=== PATIENT | female | born 1995 | race Caucasian/White ===

== ENCOUNTER 2016-08-11 15:49 | Emergency (ER) | payer OTHER ==
[~2016-08-11] VITALS: Ht 170.2 cm; Wt 56.7 kg
--- NOTE | 2016-08-11 18:57 | ED GENERAL ADULT ---
History of Present Illness General Chief Complaint: General Adult Stated Complaint: COUGH, NIGHT SWEATS,MALLORY Source: patient Exam Limitations: no limitations Vital Signs & Intake/Output Vital Signs & Intake/Output Vital Signs Date Time Temp Pulse Resp B/P B/P Pulse O2 O2 Flow FiO2 Mean Ox Delivery Rate 08/11 2040 96.8 86 18 119/76 98 Room Air 08/11 1556 97.7 100 16 126/82 99 ED Intake and Output 08/12 0000 08/11 1200 Intake Total Output Total Balance Patient 125 lb Weight Weight Reported by Patient Measurement Method Allergies Coded Allergies: No Known Allergies (08/11/16) Triage Note: PT STATES SHE HAS HAD A COUGH SINCE THE END OF MAY. PT STATES SHE WAS TAKING DAYQUIL AND THAT IS THE ONLY THING THAT HELPED. PT NOW STATES SHE COUGHED SO MUCH THAT HER THROAT HURTS. PT STATES UNSURE IF SHE IS HAVING FEVERS. Triage Nurses Notes Reviewed? yes Onset: 6-8 weeks ago Duration: week(s):, constant : No Patient currently breastfeeds: No HPI: 20 y/o otherwise healthy female presenting with non-productive cough, subjective night time fevers (no night sweats), nasal congestion x6-8 weeks. Reports development of sore throat over the past 2-3 weeks after prolonger coughing. Also had one episode of trace blood streaks with cough earlier today. Has tried Dayquil without relief. No gross hemoptysis. Currently on OCP's and reports possible family h/o DVT in her grandmother. Denies leg swelling, recent travel/ surgeries, or personal h/o blood clots. Denies CP or SOB. (JULISSA NOVA,KIRAN) Reconcile Medications Albuterol Sulfate (Proventil Hfa) 90 MCG HFA.AER.AD 2 PUF INH Q4 bronchitis Azithromycin 250 MG TABLET 1 DP PO AD bronchitis 2 the first day followed by 1 for days 2-5 Norethindrone-E.estradiol-Iron (Junel Fe 1 MG-20 Mcg Tablet) 1 MG-20 MCG (21)/75 MG (7) TABLET 1 TAB PO DAILY CONTROL (Reported) Prednisone 10 MG TABLET 6 TAB PO DAILY bronchitis (JUANJOSE BRONSON,SANTINO Rouse) Past History Travel History Traveled to [place] past 21 day No Medical History Any Pertinent Medical History? see below for history Surgical History Surgical History: non-contributory Psychosocial History What is your primary language Macedonian Tobacco Use: Never used ETOH Use: occasional use Illicit Drug Use: denies illicit drug use Family History Hx Contributory? Yes (JULISSA NOVA,KIRAN) Review of Systems Review of Systems Constitutional: Reports: chills, fever. EENTM: Reports: nasal congestion, throat pain. Denies: ear pain. Respiratory: Reports: cough. Denies: hemoptysis, sputum production, wheezing. Cardiovascular: Denies: chest pain, syncope. GI: Denies: abdominal pain, diarrhea, nausea, vomiting. Musculoskeletal: Denies: joint pain, muscle pain. Skin: Denies: rash. Neurological/Psychological: Denies: headache, numbness, tingling, tremors, weakness. (JULISSA NOVA,KIRAN) Physical Exam Physical Exam General Appearance: well developed/nourished, no apparent distress Head: atraumatic Ears, Nose, Throat: pharyngeal erythema, ENT exam unremarkable except for mild OP erythema Respiratory: normal breath sounds, lungs clear Cardiovascular: regular rate/rhythm (to 100), tachycardia Gastrointestinal: normal bowel sounds, soft, non-tender Extremities: no edema, calf tenderness Core Measures ACS in differential dx? No CVA/TIA Diagnosis: No Severe Sepsis Present: No Septic Shock Present: No (JULISSA NOVA,KIRAN) Progress Differential Diagnoses I considered the following diagnoses in my evaluation of the patient: [Viral URI vs bronchitis vs PNA vs TB vs PE vs malignancy. ] Plan of Care: Orders Procedure Date/time Status D-DIMER 08/12 1923 Complete BASIC METABOLIC PANEL 08/12 1923 Complete THROAT CULTURE W/QUICK STREP 08/11 1600 Active Laboratory Tests 08/11/161944: Anion Gap 9, Estimated GFR > 60, BUN/Creatinine Ratio 10.0, Glucose 87, Calcium 9.1, D-Dimer < 200, CBC w Diff Cancelled, WBC Cancelled, RBC Cancelled, Hgb Cancelled, Hct Cancelled, MCV Cancelled, MCH Cancelled, RDW Cancelled, Plt Count Cancelled, MPV Cancelled, PUBS MCHC Cancelled Given prolonged cough with tachycardia, OCP use, and family f/o blood clots obtained d-dimer, which was not elevated above NL. CXR consistent with airway inflammation and bronchitis. Given legnth of duration of symptoms will cover with abx, prednisone and albuterol inhaler. (KIRAN COSTA PA-C) Initial ED EKG: none (JULISSA NOVA,KIRAN) Departure Departure Disposition: HOME OR SELF CARE Condition: Stable Clinical Impression Primary Impression: Bronchitis Referrals: KJ ROBERSON MD (PCP/Family) Departure Forms: Customer Survey General Discharge Information (KIRAN COSTA PA-C) Departure Prescriptions: Current Visit Scripts Prednisone 6 TAB PO DAILY 4 Days Albuterol Sulfate (Proventil Hfa) 2 PUF INH Q4 #1 INHAL Azithromycin 1 DP PO AD #6 TAB 2 the first day followed by 1 for days 2-5 PA/PLYCOR OPERATOR Co-Sign Statement Statement: ED Attending supervision documentation- [] I saw and evaluated the patient. I have also reviewed all the pertinent lab results and diagnostic results. I agree with the findings and the plan of care as documented in the PA's/PLYCOR OPERATOR's documentation. [x] I have reviewed the ED Record and agree with the PA's/PLYCOR OPERATOR's documentation. [] Additions or exceptions (if any) to the PAs/PLYCOR OPERATOR's note and plan are summarized below: [] (JUANJOSE BRONSON,SANTINO Rouse) Critical Care Note Critical Care Note Critical Care Time: non-applicable (KIRAN COSTA PA-C)
[2016-08-11] MEDS ORDERED: JUNEL FE 1 MG-1 EACH PO (19:53)
--- NOTE | 2016-08-11 20:08 | RADIOLOGY REPORT ---
EXAMINATION: XR CHEST CLINICAL INFORMATION: Cough. Subjective fevers. COMPARISON: None TECHNIQUE: 2 views of the chest were obtained. FINDINGS: Mild bronchial wall thickening. No focal consolidation, pleural effusion or pneumothorax. 0.3 cm calcified granuloma right lower lung. Heart size is normal. No acute osseous abnormality. IMPRESSION: Bronchial wall thickening consistent with infectious or inflammatory bronchitis. No focal consolidation.
[2016-08-11] MEDS ORDERED: PROVENTIL HFA6.7 GM INH (20:36)
[2016-08-11] MEDS ORDERED: PREDNISONE10 M2 PO (20:36)
[2016-08-11] MEDS ORDERED: AZITHROMYCIN250 M1 PO (20:36)
[2016-08-11 20:41] VITALS: BP 119/76
== END 2016-08-11 20:49 ==
LOC: ERH 15:49
DX: J40 Bronchitis, not specified as acute or chronic (principal); R51 Headache; R61 Generalized hyperhidrosis